=== PATIENT | female | born 1970 | race Caucasian/White ===

== ENCOUNTER → 2016-05-27 | Outpatient (CLI) | payer OTHER ==
[2016-05-27 13:00] LABS: HEMOGLOBIN 13.9 g/dL (11.7-16.4)
[2016-05-27 13:37] LABS: ASPARTATE AMINO TRANSFERASE 23 U/L (15-37); BLOOD UREA NITROGEN 19 mg/dL (7-18)
== END | disposition home or self-care (01) ==
LOC: CFH 09:22
PROVIDERS: ATTEND Nurse Practitioner
DX: Z00.00 Encounter for general adult medical examination without abnormal findings (principal); R94.6 Abnormal results of thyroid function studies
CPT/HCPCS: 36415; 80053; 80061; 82306; 84436; 84443; 84480; 85025; 86376

== ENCOUNTER → 2016-12-30 | Outpatient (CLI) | payer OTHER ==
[2016-12-30 12:39] LABS: HEMATOCRIT 38.9 % (34.6-47.8); WHITE BLOOD COUNT 3.8 x10^3/uL (3.4-10)
[2016-12-30 12:49] LABS: ASPARTATE AMINO TRANSFERASE 27 U/L (15-37); BLOOD UREA NITROGEN 11 mg/dL (7-18)
[2017-01-01 11:29] LABS: RHEUMATOID FACTOR SCREEN NEGATIVE (NEGATIVE)
[2017-01-01 13:59] LABS: ANA SCREEN NEGATIVE (Negative)
== END | disposition home or self-care (01) ==
LOC: CFH 07:11
PROVIDERS: ATTEND Nurse Practitioner
DX: R94.6 Abnormal results of thyroid function studies (principal); M25.50 Pain in unspecified joint; M79.1 Myalgia; R79.89 Other specified abnormal findings of blood chemistry
CPT/HCPCS: 36415; 80053; 80061; 82306; 84443; 85025; 85651; 86038; 86376; 86430

== ENCOUNTER → 2017-04-13 | Outpatient (CLI) | payer OTHER | LOC: CVU 14:34 | PROVIDERS: ATTEND Nurse Practitioner | DX: M79.605 Pain in left leg (principal); M25.50 Pain in unspecified joint | CPT/HCPCS: 93970 ==

== ENCOUNTER → 2017-08-27 | Outpatient (CLI) | payer OTHER | END | disposition home or self-care (01) | LOC: CFH 07:12 | PROVIDERS: ATTEND Nurse Practitioner | DX: Z12.31 Encounter for screening mammogram for malignant neoplasm of breast (principal) | CPT/HCPCS: 76377; 76642; 77063; 77067 ==

== ENCOUNTER → 2018-02-16 | Outpatient (CLI) | payer OTHER ==
[2018-02-16 12:10] LABS: ALBUMIN 4.3 g/dL (3.4-5.0); ANION GAP 8 mmol/L (5-15); CALCIUM 8.8 mg/dL (8.5-10.1); CHLORIDE 109 mmol/L (98-107)
[2018-02-16 12:24] LABS: ALANINE AMINOTRANSFERASE 34 U/L (12-78); ALKALINE PHOSPHATASE 64 U/L (45-117); BILIRUBIN,TOTAL 0.5 mg/dL (0.2-1.0); FREE T4 (FREE THYROXINE) 1.15 ng/dL (0.76-1.46); TOTAL PROTEIN 7.6 g/dL (6.4-8.2)
[2018-02-16 14:44] LABS: CHOL/HDL RATIO 2.8; LDL/HDL RATIO 1.7 (0.5-3.0)
== END | disposition home or self-care (01) ==
LOC: CFH 06:48
PROVIDERS: ATTEND Nurse Practitioner
DX: R94.6 Abnormal results of thyroid function studies (principal)
CPT/HCPCS: 36415; 80053; 80061; 84439; 84443; 86376

== ENCOUNTER → 2018-08-31 | Outpatient (CLI) | payer OTHER | END | disposition home or self-care (01) | LOC: CFH 12:56 | PROVIDERS: ATTEND Nurse Practitioner | DX: Z12.31 Encounter for screening mammogram for malignant neoplasm of breast (principal) | CPT/HCPCS: 76641; 77063; 77067 ==

== ENCOUNTER 2019-02-21 07:02 | Outpatient (CLI) | payer OTHER ==
[2019-02-21 13:01] LABS: BASOPHILS # (AUTO) 0.01 x10^3/uL (0-0.1); BASOPHILS % (AUTO) 0 % (0-1); EOSINOPHILS # (AUTO) 0.07 x10^3/uL (0-0.4); EOSINOPHILS % (AUTO) 2 % (1-7); LYMPHOCYTES # (AUTO) 1.48 x10^3/uL (1-3.4); LYMPHOCYTES % (AUTO) 34 % (22-44); MD NO; MEAN CORPUSCULAR HEMOGLOBIN 34.8 pg (27.0-34.8); MEAN CORPUSCULAR VOLUME 105.7 fL (80-100); MEAN PLATELET VOLUME 8.5 fL (7.4-10.4); MONOCYTES # (AUTO) 0.33 x10^3/uL (0.2-0.8); MONOCYTES % (AUTO) 8 % (2-9); NEUTROPHILS # (AUTO) 2.52 x10^3/uL (1.8-6.8); NEUTROPHILS % (AUTO) 57 % (42-75); PLATELET COUNT 353 x10^3/uL (130-400); RED BLOOD COUNT 3.72 x10^6/uL (3.82-5.3)
[2019-02-21 13:03] LABS: CHLORIDE 111 mmol/L (98-107)
[2019-02-21 13:15] LABS: ALANINE AMINOTRANSFERASE 28 U/L (12-78); ALBUMIN 4.1 g/dL (3.4-5.0); ALKALINE PHOSPHATASE 49 U/L (45-117); ANION GAP 6 mmol/L (5-15); BILIRUBIN,TOTAL 0.4 mg/dL (0.2-1.0); CALCIUM 8.9 mg/dL (8.5-10.1); CHOL/HDL RATIO 2.5; CHOLESTEROL, TOTAL 210 mg/dL (140-239); CREATININE 0.69 mg/dL (0.55-1.02); FREE T4 (FREE THYROXINE) 1.05 ng/dL (0.76-1.46); HDL CHOL % 40 % (28-40); HDL CHOLESTEROL (DIRECT) 85 mg/dL (40-60); LDL CHOLESTEROL,CALCULATED 113 mg/dL (54-169); LDL/HDL RATIO 1.3 (0.5-3.0); TOTAL PROTEIN 7.3 g/dL (6.4-8.2); TRIGLYCERIDES 62 mg/dL (50-200); VLDL CHOLESTEROL 12 mg/dL (0-25)
== END 2019-02-21 23:59 | disposition home or self-care (01) ==
LOC: CFH 07:02
PROVIDERS: ATTEND Nurse Practitioner
DX: M79.7 Fibromyalgia (principal); R94.6 Abnormal results of thyroid function studies; Z68.22 Body mass index [BMI] 22.0-22.9, adult
CPT/HCPCS: 36415; 80053; 80061; 84439; 84443; 85025; 86200; 86376; 86431

== ENCOUNTER 2019-06-14 07:48 | Outpatient (CLI) | payer OTHER ==
[2019-06-14 12:49] LABS: BASOPHILS # (AUTO) 0.02 x10^3/uL (0-0.1); BASOPHILS % (AUTO) 0 % (0-1); EOSINOPHILS # (AUTO) 0.04 x10^3/uL (0-0.4); EOSINOPHILS % (AUTO) 1 % (1-7); LYMPHOCYTES # (AUTO) 1.68 x10^3/uL (1-3.4); LYMPHOCYTES % (AUTO) 29 % (22-44); MD NO; MEAN CORPUSCULAR HEMOGLOBIN 34.4 pg (27.0-34.8); MEAN CORPUSCULAR HGB CONC 33.7 g/dL (32.4-35.8); MEAN CORPUSCULAR VOLUME 102.2 fL (80-100); MEAN PLATELET VOLUME 8.8 fL (7.4-10.4); MONOCYTES # (AUTO) 0.13 x10^3/uL (0.2-0.8); MONOCYTES % (AUTO) 2 % (2-9); NEUTROPHILS # (AUTO) 3.89 x10^3/uL (1.8-6.8); NEUTROPHILS % (AUTO) 68 % (42-75); PLATELET COUNT 321 x10^3/uL (130-400); RED BLOOD COUNT 3.85 x10^6/uL (3.82-5.3)
== END 2019-06-14 23:59 | disposition home or self-care (01) ==
LOC: CFH 07:48
PROVIDERS: ATTEND Nurse Practitioner
DX: R71.8 Other abnormality of red blood cells (principal)
CPT/HCPCS: 36415; 85025

== ENCOUNTER 2019-07-22 12:24 | Outpatient (CLI) | payer OTHER ==
[~2019-07-22 12:24] MED LIST: LIDOCAINE-MPF 1%, 5ML ONE; ROPivacaine/PF 0.2%, 10 ML ONE; TRIAMCINOLONE ACETONIDE 40 MG/ML, 1ML ONE
[2019-07-22] MEDS ORDERED: OMNIPAQUE 300 MG/ML, 10ML VIAL ONE (13:00)
== END 2019-07-22 23:59 | disposition home or self-care (01) ==
LOC: RAD 12:24
PROVIDERS: ATTEND Orthopaedic Surgery
DX: M24.151 Other articular cartilage disorders, right hip (principal); M24.152 Other articular cartilage disorders, left hip
CPT/HCPCS: 20610; 77002; J2795; J3301; Q9967

== ENCOUNTER 2019-09-08 14:29 | Outpatient (CLI) | payer OTHER | END 2019-09-08 23:59 | disposition home or self-care (01) | LOC: CFH 14:29 | PROVIDERS: ATTEND Nurse Practitioner | DX: Z12.31 Encounter for screening mammogram for malignant neoplasm of breast (principal); N64.89 Other specified disorders of breast; Z98.82 Breast implant status | CPT/HCPCS: 76641; 77063; 77067 ==

== ENCOUNTER 2020-06-14 07:02 | Outpatient (CLI) | payer OTHER ==
[2020-06-14 07:32] LABS: ALANINE AMINOTRANSFERASE 23 U/L (12-78); ALBUMIN 4.1 g/dL (3.4-5.0); ANION GAP 5 mmol/L (5-15); CALCIUM 8.9 mg/dL (8.5-10.1); CHLORIDE 108 mmol/L (98-107)
[2020-06-14 07:41] LABS: ALKALINE PHOSPHATASE 59 U/L (45-117); BILIRUBIN,TOTAL 0.4 mg/dL (0.2-1.0); CHOL/HDL RATIO 2.6; CHOLESTEROL, TOTAL 258 mg/dL (140-239); FREE T4 (FREE THYROXINE) 1.17 ng/dL (0.76-1.46); HDL CHOL % 39 % (28-40); HDL CHOLESTEROL (DIRECT) 101 mg/dL (40-60); LDL CHOLESTEROL,CALCULATED 142 mg/dL (54-169); LDL/HDL RATIO 1.4 (0.5-3.0); TOTAL PROTEIN 7.4 g/dL (6.4-8.2); TRIGLYCERIDES 76 mg/dL (50-200); VLDL CHOLESTEROL 15 mg/dL (0-25)
== END 2020-06-14 23:59 | disposition home or self-care (01) ==
LOC: LAB 07:02
PROVIDERS: ATTEND Nurse Practitioner
DX: R94.6 Abnormal results of thyroid function studies (principal)
CPT/HCPCS: 36415; 80053; 80061; 84439; 84443; 86376

== ENCOUNTER 2020-09-12 07:03 | Outpatient (CLI) | payer OTHER | END 2020-09-12 23:59 | disposition home or self-care (01) | LOC: CFH 07:03 | PROVIDERS: ATTEND Nurse Practitioner | DX: Z12.31 Encounter for screening mammogram for malignant neoplasm of breast (principal); Z12.39 Encounter for other screening for malignant neoplasm of breast | CPT/HCPCS: 76641; 77063; 77067 ==